=== PATIENT | male | born 1990 | race Caucasian/White ===

== ENCOUNTER 2017-12-28 14:01 | Emergency (ER) | payer MEDICAID ==
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
[2017-12-28 15:03] LABS: ABSOLUTE EOSINOPHILS # (AUTO) 0.2 10^3/uL (0.0-0.6); ABSOLUTE LYMPHOCYTES (AUTO) 2.1 10^3/uL (0.5-4.7); ABSOLUTE MONOCYTES (AUTO) 0.6 10^3/uL (0.1-1.4); ABSOLUTE NEUT (AUTO) 3.2 10^3/uL (1.7-8.2); BASOPHILS % (AUTO) 0.6 % (0-2); EOSINOPHILS % (AUTO) 3.3 % (0-6); HEMATOCRIT 47.7 % (37.9-51.0); HEMOGLOBIN 15.8 g/dL (13.5-17.0); MEAN CORPUSCULAR HEMOGLOBIN 30.2 pg (27.0-33.4); MEAN CORPUSCULAR HGB CONC 33.2 g/dL (32.0-36.0); MEAN CORPUSCULAR VOLUME 91 fl (80-97); MONOCYTES % (AUTO) 9.1 % (3-13); PLATELET COUNT 223 10^3/uL (150-450); RED BLOOD COUNT 5.24 10^6/uL (4.35-5.55); RED CELL DISTRIBUTION WIDTH 14.6 % (11.5-14.0); TOTAL CELLS COUNTED % (AUTO) 100 %; WHITE BLOOD COUNT 6.1 10^3/uL (4.0-10.5)
[2017-12-28 15:25] LABS: ANION GAP 10 (5-19); BLOOD UREA NITROGEN 13 mg/dL (7-20); CALCIUM 9.8 mg/dL (8.4-10.2); CARBON DIOXIDE 29 mmol/L (22-30); CHLORIDE 105 mmol/L (98-107); GLUCOSE 89 mg/dL (75-110); POTASSIUM 4.7 mmol/L (3.6-5.0); SODIUM 143.9 mmol/L (137-145)
[2017-12-28] MEDS ORDERED: CEPHALEXIN 500 MG CAPSULE PO ONE (17:05)
[2017-12-28] MEDS ORDERED: SULFAMETHOXAZOLE/TRIMETHOPRIM 800-160 MG TABLET PO ONE (17:05)
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
[2017-12-28 17:29] VITALS: BP 119/70
--- NOTE | 2017-12-29 09:11 | XCELERA REPORT ---
[address] [place] [facility] [address] Lower Extremity Venous Evaluation Procedure: Color flow and duplex imaging of the veins of the right lower extremity as well as the left Common Femoral vein. Right Sided Venous Evaluation Normal vessel filling wall to wall, compression and augmentation as well as Colour flow down to the infrageniculate veins. Left Sided Venous Evaluation The left common femoral vein is fully compressible. Spontaneous and phasic flow is present in the left common femoral vein. Interpretation Summary No duplex evidence of DVT or obstruction in the right lower extremity nor in the left Common Femoral vein. Name: SUZI RUBIN Age: 27 yrs Gender: Male : 1990 Patient Status: Preadmit Patient Location: ER Study Date: 12/28/2017 04:01 PM Reason For Study: rle swelling Ordering Physician: JOE ALAN Performed By: Maria Fernanda Peres : JOE ALAN > Fabricio Ambrose
== END 2017-12-28 17:47 | disposition home or self-care (01) ==
LOC: ER 14:01
DX: I83.811 Varicose veins of right lower extremity with pain (principal); I83.92 Asymptomatic varicose veins of left lower extremity; F17.200 Nicotine dependence, unspecified, uncomplicated; L53.9 Erythematous condition, unspecified; M79.89 Other specified soft tissue disorders; Z86.14 Personal history of Methicillin resistant Staphylococcus aureus infection
CPT/HCPCS: 36415; 80048; 85025; 93971; 99284